=== PATIENT | male | born 1970 | race Caucasian/White ===

== ENCOUNTER 2019-05-03 12:51 | Observation (INO) | payer OTHER ==
[~2019-05-03] VITALS: Ht 185.4 cm; Wt 153.4 kg
[2019-05-03 13:41] LABS: Hemoglobin 11.3 g/dL (13.5-17.5)
[2019-05-03] MEDS ORDERED: ALBU90OI INH (13:55)
[2019-05-03] MEDS ORDERED: AMLO10 PO (13:56)
[2019-05-03] MEDS ORDERED: DULO30 PO (13:56)
[2019-05-03] MEDS ORDERED: Flovent 110 MCG12 GM INH (13:56)
[2019-05-03] MEDS ORDERED: ALBU3IS INH (13:57)
[2019-05-03] MEDS ORDERED: FLUT1DIS5 INH (13:57)
[2019-05-03] MEDS ORDERED: FURO40 PO (13:57)
[2019-05-03] MEDS ORDERED: Aldactone100 MG PO (13:58)
[2019-05-03] MEDS ORDERED: OMEP20ER PO (13:58)
[2019-05-03] MEDS ORDERED: TRAZ100 PO (13:59)
[2019-05-03] MEDS ORDERED: TRIDERM28.4 GM TOP (14:00)
--- NOTE | 2019-05-03 18:21 | NUR ---
SHIFT SUMMARY ASSUMED CARE AT APPROXIMATELY 1630. PT ALERT AND ORIENTED. PT ABLE TO STAND AND TRANSFER TO BED FROM STRETCHER. PT TREMULOUS. PT REPORTS FEELING ANXIOUS. PT STATES HE DRINKS ABOUT A HALF GALLON OF [place] DAILY. LAST DRINK WAS 6PM LAST NIGHT. PT REPORTS HAVING BRIGHT RED BLOOD IN STOOL, BUT HAS NOT HAD BM SINCE ADMISSION. NO VOMITTING OR NAUSEA. VS STABLE. O2 SATS REMAIN ABOVE 90% ON RA. BP STABLE. HR NSR. PT DENIES ANY PAIN. WILL CONTINUE TO MONITOR AND REPORT TO ONCOMING RN. CALL LIGHT IN REACH.
--- NOTE | 2019-05-03 19:47 | NUR ---
DR. SARKAR BEDSIDE WITH PATIENT.
[2019-05-03 20:44] LABS: Hematocrit 36.9 % (37.0-53.0); Hemoglobin 11.1 g/dL (13.5-17.5)
--- NOTE | 2019-05-03 22:10 | NUR ---
ASSUMED CARE OF PATIENT AT APPROXIMATELY 1910 FROM ANDREW Lomas RN. PATIENT ALERT AND ORIENTED X4; FORGETFUL AT TIMES; FORGETS LOCATION, IMPULSIVE AT TIMES AND FORGOT DAY OF WEEK. PATIENT DENIES PAIN, DIZZINESS AND NAUSEA. PATIENT REPORTS NUMBNESS OFF AND ON IN LEFT LEG. PATIENT HAS MODERATE TREMOR; DECONDITIONED. REPORTS LAST DRINK WAS 05/02; PATIENT REPORTED THAT HE WAS TRYING TO QUIT DRINKING BUT PERSONAL ISSUES MADE HIM DRINK MORE. DR. SARKAR BEDSIDE WITH PATIENT; NURSE NOTIFY FOR DIET; CLEARS UNTIL 0500 THEN ICE CHIPS AND WATER UNTIL 0930 THEN NPO FOR PROCEDURE IN AM. 3X PIV S/L. PATIENT REPORTS THAT HE WANTS TO BE FULL CODE. NSR ON TELE; OXYGEN SATURATION ABOVE 90% ON ROOM AIR; REPORTS WEAR HOME CPAP; CALLED [employer]LET[employer]ER GARCIA TO REPORT CODE STATUS AND USE OF HOME CPAP; ORDERS RECIEVED. PATIENT HAD BM SHORTLY AFTER SHIFT CHANGE; BROWN FORMED; BLOOD CLOTS AND BRIGHT RED BLOOD NOTED IN STOOL. PATIENT CURRENTLY RESTING IN BED; CALL LIGHT IN REACH; BED IN LOWEST POSISTION; BED ALARM ON; WILL CONTINUE TO MONITOR AND ASSESS UNTIL END OF SHIFT.
[2019-05-04 02:32] LABS: BASOPHILS ABSOLUTE AUTO 0.04 K/mm3 (0.00-0.23); BASOPHILS PERCENT AUTO 1 % (0-2); EOSINOPHILS ABSOLUTE AUTO 0.25 K/mm3 (0.00-0.68); EOSINOPHILS PERCENT AUTO 7 % (0-6); Hematocrit 33.8 % (37.0-53.0); Hemoglobin 10.2 g/dL (13.5-17.5); IMMATURE GRAN ABSOLUTE AUTO 0.01 K/mm3 (0.00-0.10); IMMATURE GRAN PERCENT AUTO 0 % (0-1); LYMPHOCYTES ABSOLUTE AUTO 0.91 K/mm3 (0.84-5.20); LYMPHOCYTES PERCENT AUTO 27 % (21-46); MONOCYTES ABSOLUTE AUTO 0.29 K/mm3 (0.16-1.47); MONOCYTES PERCENT AUTO 9 % (4-13); Mean Corpuscular HGB 24.8 pg (26.0-34.0); Mean Corpuscular HGB Conc 30.2 g/dL (31.5-36.5); Mean Corpuscular Volume 82 fL (80-100); Mean Platelet Volume 10.1 fL (9.1-12.4); NEUTROPHILS ABSOLUTE AUTO 1.91 K/mm3 (1.96-9.15); NEUTROPHILS PERCENT AUTO 56 % (41-73); Platelet Count 65 K/mm3 (150-400); RDW Coefficient Variation 16.5 % (11.7-14.2); RDW Standard Deviation 49.3 fL (35.1-46.3); Red Blood Cell Count 4.11 M/mm3 (4.30-5.90); White Blood Cell Count 3.41 K/mm3 (4.00-11.30)
[2019-05-04 02:55] LABS: International Normalized Ratio 1.25
[2019-05-04 03:02] LABS: Alanine Aminotransfer (ALT/SGP 44 U/L (12-78); Albumin, Blood 2.7 g/dL (3.4-5.0); Albumin/Globulin Ratio 0.7 (0.8-1.8); Alk Phos 189 U/L (50-136); Anion Gap 5 mmol/L (6-16); Aspartate Aminotrans (AST/SGOT 75 U/L (12-37); Bilirubin, Total 2.2 mg/dL (0.1-1.0); Blood Urea Nitrogen 8 mg/dL (8-24); Bun/Creatinine Ratio 16.1 (12.0-20.0); CO2, Blood 29 mmol/L (21-32); Calcium, Blood 7.2 mg/dL (8.5-10.1); Chloride, Blood 106 mmol/L (98-108); Glomerular Filtration Rate >60 (60-); Glucose, Blood 161 mg/dL (70-99); Potassium, Blood 3.7 mmol/L (3.5-5.5); Sodium, Blood 140 mmol/L (136-145); Total Protein, Blood 6.7 g/dL (6.4-8.2)
--- NOTE | 2019-05-04 06:51 | NUR ---
PATIENT SLEPT FOR ABOUT NINE HOURS LAST NIGHT WITH CPAP ON. MEDICATED FOR CIWA ONCE; LAST CIWA WAS 5. PATIENT EDUCTED ON ICE CHIPS AND WATER ONLY UNTIL THE COLONOSCOPY. WILL CONTINUE TO MONITOR AND ASSES UNTIL END OF SHIFT.
--- NOTE | 2019-05-04 10:00 | NUR ---
PT TAKEN TO DAY SURGERY FOR PROCEDU
--- NOTE | 2019-05-04 11:00 | NUR ---
PT TAKEN TO DAY SURGERY FOR EGD. WILL AWAIT RETURN.
--- NOTE | 2019-05-04 11:30 | NUR ---
05/04/19 1130 Bethanie Segura History, Chart, Medications and Allergies reviewed before start of procedure. PATIENT CONFIRMS NPO STATUS AND AGREES WITH SCHEDULED PROCEDURE. MONITOR INTACT WITH CONTINUOUS PULSE OXIMETRY AND INTERMITTENT BP.O2 VIA N/C INTACT THROUGHOUT SEDATION/PROCEDURE. DR. LANCASTER PROVIDING ANESTHESIA CARE.
--- NOTE | 2019-05-04 12:30 | NUR ---
PT RETURNED FROM DAY SURGERY. VS STABLE STABLE. PT ALERT AND ORIENTED. DR. SARKAR IN TO DISCUSS RESULTS. WILL CONTINUE TO MONITOR CLOSELY.
--- NOTE | 2019-05-04 16:59 | NUR ---
SHIFT SUMMARY PT ALERT AND ORIENTED. VS STABLE. BP ELEVATED AND MEDICATED PER EMAR. CIWA HAS BEEN A 4 ALL DAY. PLAN FOR PT TO HAVE COLONOSCOPY TOMORROW. PT ON CLEAR LIQUIDS UNTIL 0600 TOMORROW MORNING. PT ABLE TO AMBULATE TO BATHROOM NEEDED WITH SBA. WILL CONTINUE TO MONITOR AND REPORT TO ONCOMING RN. CALL LIGHT IN REACH.
--- NOTE | 2019-05-04 22:58 | NUR ---
ASSUMED CARE OF PATIENT AT APPROXIMATELY 1915 FROM KATHIE Novoa RN. PATIENT ALERT AND ORIENTED X4; FORGETFUL AT TIMES; FORGET LOCATION. PATIENT DENIES PAIN, DIZZINESS AND NAUSEA. PATIENT REPORTS NUMBNESS OFF AND ON IN LEFT LEG. PATIENT HAS MILD TREMOR; CIWA 7; DECONDITIONED; DYSPNEA WITH EXCERTION; PATIENT S/P EGD TODAY; COLONOSCOPY TOMORROW. PATIENT ON CLEAR LIQUID DIET UNTIL 0600 THEN ICE CHIPS AND WATER UNTIL 1300 THEN NPO. 3X PIV S/L. NSR ON TELE; OXYGEN SATURATION ABOVE 90% ON ROOM AIR OR ON CPAP. PATIENT REPORTED LOOSE BLOODY BM TODAY X1. PATIENT INDEPENDENT TO BATHROOM TO URINATE; REPORTS URINE CLEARER; FLUSHES URINE. PATIENT CURRENTLY RESTING IN BED; CALL LIGHT IN REACH; BED IN LOWEST POSISTION; BED ALARM ON; WILL CONTINUE TO MONITOR AND ASSESS UNTIL END OF SHIFT.
--- NOTE | 2019-05-05 05:32 | NUR ---
PATIENT SLEPT FOR ABOUT SIX HOURS LAST NIGHT. CIWA 5-11. NO ACUTE CHANGES TO REPORT. WILL CONTINUE TO MONITOR AND ASSESS UNTIL END OF SHIFT.
--- NOTE | 2019-05-05 17:34 | NUR ---
SHIFT SUMMARY PT RESTING IN BED THROUGHOUT THE DAY. ALERT AND ORIENTED TO SELF, PLACE AND TIME, [place] . DENIES PAIN THROUGHOUT THE DAY. CIWA 6-10 TODAY, NOTED TREMORS, HEADACHE, ANXIETY WITH VISUAL DISTURBANCES. MEDICATED WITH PRN ATIVAN IV. PT STATES LIBRIUM DOES NOT SEEM TO HELP. LUNG SOUNDS CLEAR, NSR WITH BBB RATE 70s PER TELEMETRY. BOWEL SOUNDS HYPERACTIVE. PT TOLERATING COLONOSCOPY PREP FAIRLY WELL. COMPLETED BEFORE 1200. TRACE EDEMA NOTED TO BLE. C/O LEFT LEG NUMBNESS WHICH IS CHRONIC. PT TO COLONOSCOPY AT 1740. WILL CONTINUE TO MONITOR.
--- NOTE | 2019-05-05 17:58 | NUR ---
"DAY SURGERY RN | REPORT TO RAYMUNDO PIZARRO. VSS. A/O. DENIES NEEDS. BED IN LOWEST POSITION, CALL LIGHT WITHIN REACH."
--- NOTE | 2019-05-05 18:12 | NUR ---
05/05/19 1812 Dick Roman History, Chart, Medications and Allergies reviewed before start of procedure.MONITOR INTACT WITH CONTINUOUS PULSE OXIMETRY AND INTERMITTENT BP.3-LEAD EKG REVIEWED WITH PHYSICIAN PRIOR TO START OF PROCEDURE.O2 VIA N/C INTACT THROUGHOUT SEDATION/PROCEDURE. Patient confirms NPO status and agrees with scheduled surgery.See Anesthesia record.
--- NOTE | 2019-05-05 19:03 | NUR ---
PT RETURNED FROM COLONOSCOPY. PT TRANSFERED FROM [facility] TO BED. VSS. RESTING IN BED.
[2019-05-06 04:14] LABS: BASOPHILS ABSOLUTE AUTO 0.08 K/mm3 (0.00-0.23); BASOPHILS PERCENT AUTO 1 % (0-2); EOSINOPHILS ABSOLUTE AUTO 0.41 K/mm3 (0.00-0.68); EOSINOPHILS PERCENT AUTO 7 % (0-6); Hematocrit 34.2 % (37.0-53.0); Hemoglobin 10.3 g/dL (13.5-17.5); IMMATURE GRAN ABSOLUTE AUTO 0.04 K/mm3 (0.00-0.10); IMMATURE GRAN PERCENT AUTO 1 % (0-1); LYMPHOCYTES ABSOLUTE AUTO 0.96 K/mm3 (0.84-5.20); LYMPHOCYTES PERCENT AUTO 17 % (21-46); MONOCYTES ABSOLUTE AUTO 0.49 K/mm3 (0.16-1.47); MONOCYTES PERCENT AUTO 8 % (4-13); Mean Corpuscular HGB 24.9 pg (26.0-34.0); Mean Corpuscular HGB Conc 30.1 g/dL (31.5-36.5); Mean Corpuscular Volume 83 fL (80-100); Mean Platelet Volume 10.8 fL (9.1-12.4); NEUTROPHILS ABSOLUTE AUTO 3.83 K/mm3 (1.96-9.15); NEUTROPHILS PERCENT AUTO 66 % (41-73); Platelet Count 77 K/mm3 (150-400); RDW Coefficient Variation 16.4 % (11.7-14.2); RDW Standard Deviation 49.1 fL (35.1-46.3); Red Blood Cell Count 4.13 M/mm3 (4.30-5.90); White Blood Cell Count 5.81 K/mm3 (4.00-11.30)
[2019-05-06 04:34] LABS: Anion Gap 8 mmol/L (6-16); Blood Urea Nitrogen 7 mg/dL (8-24); Bun/Creatinine Ratio 11.8 (12.0-20.0); CO2, Blood 25 mmol/L (21-32); Calcium, Blood 7.9 mg/dL (8.5-10.1); Chloride, Blood 107 mmol/L (98-108); Creatinine, Blood 0.59 mg/dL (0.60-1.20); Glomerular Filtration Rate >60 (60-); Glucose, Blood 142 mg/dL (70-99); Potassium, Blood 4.1 mmol/L (3.5-5.5); Sodium, Blood 140 mmol/L (136-145)
--- NOTE | 2019-05-06 06:25 | NUR ---
SHIFT SUMMARY PT HAS REMAINED AOX4 THROUGHOUT SHIFT. VSS. PLEASANT AND COOPERATIVE WITH CARE. PT CONTINUES TO AMBULATE WITH STANDBY ASSIST TO BATHROOM WITH NO DIFFICULTY. CIWA RANGING FROM 6-10 THROUGHOUT THE NIGHT. PT REPORTING HEADACHE AND ANXIETY THROUGHOUT THE NIGHT. MEDICATED FOR ALCOHOL WITHDRAWAL MULTIPLE TIMES THROUGHOUT THE NIGHT, SEE EMAR. PT TOLERATING REGULAR DIET WELL, DENIES N/V. NO BM THROUGHOUT THE NIGHT. PT HAS RESTED WELL THROUGHOUT THE NIGHT WITH CPAP IN PLACE WITH 2L O2 BLEED IN. NO OTHER CHANGES NOTED FROM INITIAL ASSESSMENT. WILL CONTINUE TO MONITOR AND REPORT TO ONCOMING SHIFT RN. BED IN LOW POSITION, CALL LIGHT IN REACH. BED ALARM SET FOR SAFETY.
[2019-05-06] MEDS ORDERED: PROP10 PO (12:41)
--- NOTE | 2019-05-06 14:12 | NUR ---
DISCHARGE SUMMARY PT A&O T/O SHIFT. UP TO BATHROOM IND. PT RESTING IN BED DURING SHIFT. PT REPORTS POTTS, DENIES NEEDS FOR PAIN MEDICATION. PT DENIES SOB AND NAUSEA. PT HAS GOOD APPETITE. CIWA 8-10, DUE TO TREMORS, ANXIETY AND POTTS. PT DENIES BLOODY BMS. VSS. NO OTHER ACUTE CHANGES NOTED. PT EDUCATED ON DISCHARGE INSTRUCTIONS, MEDICATIONS AND FOLLOW UP APPOINTMENTS. PRESCRIPTIONS FAXED TO [facility] PER PT REQUEST. PT LEFT ROOM ON FOOT WITH TRANSPORTS AT 1354. PT STABLE UPON DISCHARGE.
== END 2019-05-06 13:56 | disposition home or self-care (01) ==
LOC: ER 12:51 → PCU 12:52 → ER 14:11 → PCU 16:20
PROVIDERS: Emergency Medicine; Internal Medicine; Internal Medicine Gastroenterology; ADMIT Hospitalist
PROC: 0DBK8ZZ Excision of Ascending Colon, Via Natural or Artificial Opening Endoscopic (ICD-10-PCS; principal; 2019-05-04 11:00)
PROC: 0DBL8ZZ Excision of Transverse Colon, Via Natural or Artificial Opening Endoscopic (ICD-10-PCS; principal; 2019-05-04 11:00)
PROC: 0DJ08ZZ Inspection of Upper Intestinal Tract, Via Natural or Artificial Opening Endoscopic (ICD-10-PCS; principal; 2019-05-04 11:00)
PROC: 0DBH8ZZ Excision of Cecum, Via Natural or Artificial Opening Endoscopic (ICD-10-PCS; principal; 2019-05-04 11:00)
DX: D12.0 Benign neoplasm of cecum (principal); D12.3 Benign neoplasm of transverse colon; K63.5 Polyp of colon; K64.4 Residual hemorrhoidal skin tags; K76.6 Portal hypertension; K31.89 Other diseases of stomach and duodenum; I85.11 Secondary esophageal varices with bleeding; K64.9 Unspecified hemorrhoids; E66.01 Morbid (severe) obesity due to excess calories; D61.818 Other pancytopenia; I10 Essential (primary) hypertension; F10.20 Alcohol dependence, uncomplicated; F41.9 Anxiety disorder, unspecified; F10.239 Alcohol dependence with withdrawal, unspecified; R60.9 Edema, unspecified
CPT/HCPCS: 36415; 76700; 80048; 80053; 82105; 83735; 85014; 85018; 85025; 85610; 88305; 94640; 94660; 94762; 96361; 96365; 96366; 96374; 96375; 96376; 99285-25; C9113; G0378; J2060; J2250; J2704; J3360; J3411; J3475; J7030; J7042; J7120